=== PATIENT | male | born 1955 | race Caucasian/White ===

== ENCOUNTER 2020-05-10 08:13 | Outpatient (CLI) | payer OTHER ==
--- NOTE | 2020-05-10 08:50 | RAD ---
Radiograph thoracic spine 3 views: 05/10/2020 HISTORY: 65-year-old male with thoracic radiculopathy. FINDINGS: Very mild right-lateral convex gentle curvature. Vertebral body heights are maintained. Flowing bridg ing osteophytes protruding into the prevertebral space throughout essentially the entire thoracic spine and visualized upper portions of lumbar spine. Multilevel at least mild degenerative disc rodriguez es. IMPRESSION: 1. DISH (diffuse idiopathic skeletal hyperostosis). 2. No compression fracture.
[2020-05-10 08:58] LABS: Estimated GFR-MDRD - POC Greater than 90
--- NOTE | 2020-05-10 10:54 | MRI ---
MRI THORACIC SPINE WITH AND WITHOUT CONTRAST: COMPARISON: 07/15/2003. HISTORY: Thoracic back pain. 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 Constant and worsening pain. FINDINGS: Appropriate T1 marrow signal intensity of the thoracic vertebrae. Thoracic spine vertebral body heigh t is maintained. There is no fracture. There is no significant STIR hyperintensity to suggest vertebral body edema or ligamentous injury. There is appropriate signal intensity in the mediastinum, lung parenchyma and solid organs. Conus medullaris terminates beyond the upper aspect of T12. Postcontrast images do not demonstrate any abnormal enhancement of the vertebral bodies. There is redemonstration of cord malacia and gliosis starting at approximately the T5 vertebral body level and extending inferiorly to the T8 vertebral body level. There is a T2 hyperintense focus at the T7 level, measuring 0.4 x 0.3 cm. There is associated enhancement. 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 There is stable tethering of the thoracic cord posteriorly at the T7 level. Throughout the thoracic spine there is no significant central canal stenosis or significant neural fo raminal narrowing. IMPRESSION: 1. No abnormal enhancement of the vertebral bodies. 2. 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 T2 hyperintense focus has associated enhancement. Comparison with previous examination does not demonstrate any definite appreciable change. Given long-term stability, scarring is favored. Low-grade lesion is less favored despite the presence of enhancement. 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 There is stable tethering of the cord along the posterior left aspect of the central spinal canal at T7. Transcribed Date/Time: 05/10/2020 12:24 PM
[2020-05-10] MEDS ORDERED: Magnevist 469MG/ML 20 ML VIAL ONE (14:02)
== END 2020-05-10 08:14 | disposition home or self-care (01) ==
LOC: TBSIIMAG 08:13
PROVIDERS: ATTEND Surgery
DX: M54.14 Radiculopathy, thoracic region (principal); M48.14 Ankylosing hyperostosis [Forestier], thoracic region; M83.8 Other adult osteomalacia; Z98.890 Other specified postprocedural states
CPT/HCPCS: 72072; 72157; 82565; A9579

== ENCOUNTER 2022-05-20 15:15 | Emergency (ER) | payer OTHER ==
[2022-05-20 16:28] LABS: INR-International Normal Ratio 0.9; PTT 35.2 sec (22.9-36.1); Prothrombin Time 12.7 sec (12.0-14.7)
[2022-05-20 16:33] LABS: #Basophils 0.1 thou/uL (0.0-0.2); #Eosinphils 0.2 thou/uL (0.0-0.7); #Lymphocytes 1.4 thou/uL (1.20-3.40); #Monocytes 0.7 thou/uL (0.11-0.59); #Neutrophils 4.4 thou/uL (1.40-6.50); %Basophils 0.7 % (0.0-1.0); %Eosinophils 3.5 % (0.0-10.0); %Lymphocytes 20.9 % (21.0-51.0); %Monocytes 9.6 % (0.0-10.0); %Neutrophils 65.2 % (42.0-75.0); Hemoglobin 13.4 g/dL (14.0-18.0); Mean Corpuscular HGB CONC 30.2 g/dL (32.0-36.0); Mean Corpuscular Hemoglobin 28.4 pg (27.0-31.0); Mean Platelet Volume 6.3 fL (7.4-10.4); Platelet Count 336 thou/uL (130-400); RBC Distribution Width 13.1 % (11.5-14.5); Red Blood Cell (RBC) Count 4.71 mill/uL (4.70-6.10); White Blood Cell (WBC) Count 6.8 thou/uL (4.8-10.8)
[2022-05-20 17:19] LABS: ALT (SGPT) 33 U/L (8-55); AST (SGOT) 36 U/L (5-34); Albumin 3.4 g/dL (3.4-4.8); Alkaline Phosphatase 71 U/L (40-110); Anion Gap 18 mmol/L (10-20); BUN (Urea Nitrogen) 14 mg/dL (8.4-25.7); Bilirubin, Total 0.2 mg/dL (0.2-1.2); CK (CPK) 133 U/L (30-200); Calc. Creatinine Clearance 0 mL/min (70-130); Calcium 9.4 mg/dL (7.8-10.44); Carbon Dioxide 17 mmol/L (23-31); Chloride 109 mmol/L (98-107); Estimated GFR 100; Globulin 3.8 g/dL (2.4-3.5); Glucose 117 mg/dL (80-115); Potassium 4.7 mmol/L (3.5-5.1); Protein, Total 7.2 g/dL (5.8-8.1); Sodium 139 mmol/L (136-145)
== END 2022-05-20 18:28 | disposition home or self-care (01) ==
LOC: ERS 15:15
DX: T63.061A Toxic effect of venom of other North and South American snake, accidental (unintentional), initial encounter (principal)
CPT/HCPCS: 36415; 80053; 82550; 85025; 85384; 85610; 85730; 99283